=== PATIENT | female | born 1965 | race African-American/Black ===

== ENCOUNTER 2018-08-29 16:46 | Emergency (ER) | payer BC ==
[2018-08-29] MEDS ORDERED: MAGNE/ALUM HYDROXD 30 ML UCUP ONE (17:58)
[2018-08-29] MEDS ORDERED: LIDOCAINE VISCOUS 2% SOLN 15 ML UDC ONE (17:59)
[2018-08-29] MEDS ORDERED: ONDANSETRON 4 MG/2 ML VIAL ONE (17:59)
[2018-08-29 18:04] LABS: Absolute Lymphocytes (CBC) 3.3 K/uL (0.7-4.9); Absolute Monocytes 0.8 K/uL (0.1-1.3); Absolute Neutrophil 6.1 K/uL (1.8-8.0); Basophils % 0.3 % (0-1.3); Eosinophils % 0.2 % (0-4.4); Hematocrit 41.5 % (36.0-45.0); Lymphocytes % 32.3 % (15.3-44.8); MCV 85.3 fL (80-100); MPV 9.2 fL (7.6-11.3); Monocytes % 7.7 % (3.3-12.3); RBC Red Blood Cell Count 4.87 M/uL (3.86-4.86)
[2018-08-29 18:35] LABS: Bilirubin Direct 0.5 mg/dL (0-0.2); Bilirubin Total 0.7 mg/dL (0.2-1.0); Potassium 3.7 mmol/L (3.5-5.1); Protein, Total 8.4 g/dL (6.4-8.2)
[2018-08-29] MEDS ORDERED: CEFTRIAXONE/SWI 1gm 1 GM/10 ML SYR ONE (19:07)
[2018-08-29] MEDS ORDERED: METRONIDAZOLE 500mg IVPB 500 MG/100 ML BAG IV ONE (19:07)
--- NOTE | 2018-08-29 19:39 | EKG ---
Test Date: 2018-08-29 Test Time: 17:52:20 Social Media Manager: BOUCHRA MEASUREMENT RESULTS: Intervals: Rate: 73 MT: 196 QRSD: 76 QT: 364 QTc: 401 [place]: P: 75 MT: 196 QRS: 49 T: 109 INTERPRETIVE STATEMENTS: Normal sinus rhythm Possible Left atrial enlargement Otherwise normal ECG No previous ECG available for comparison Electronically Signed On 08-29-18 19:38:40 CDT by Demond Brothers
--- NOTE | 2018-08-29 19:53 | RAD REPORT ---
EXAM DESCRIPTION: US - Abdomen Exam Limited - 08/29/2018 6:38 pm CLINICAL HISTORY: Abdominal pain, right upper quadrant pain Preliminary findings provided the time of the study. COMPARISON: None. FINDINGS: Gallbladder is distended but not grossly dilated. Wall thickening and a small amount of pe richolecystic fluid seen. There are numerous punctate gallstones layering in the dependent portion th e gallbladder. Common bile duct is normal with no common duct stone identified. IMPRESSION: Multi stone cholelithiasis with wall thickening and pericholecystic fluid. No biliary tree dilatation.
--- NOTE | 2018-08-29 20:01 | RAD REPORT ---
EXAM DESCRIPTION: CT - Abdomen Pelvis W Contrast - 08/29/2018 7:50 pm CLINICAL HISTORY: Abdominal pain, epigastric pain, vomiting, prior hysterectomy COMPARISON: Ultrasound study same date TECHNIQUE: Biphasic, helical CT imaging of the abdomen and pelvis was performed following 100 ml non -ionic IV contrast. Oral contrast was given. All CT scans are performed using dose optimization technique as appropriate and may include automated exposure control or mA/KV adjustment according to patient size. FINDINGS: No suspicious findings in the lung bases. The liver, spleen, and pancreas show no suspicious findings. Gallbladder is distended. There is promi nent gallbladder wall thickening and edema. Gallstones are not well visualized on this study. Biliary tree does appear mildly dilated on CT criteria. Symmetric renal function is seen with no hydronephrosis or suspicious renal mass. No pyelonephritis o r acute renal parenchymal process. Contracted urinary bladder shows no suspicious findings. Uterus is absent. Ovaries are absent or atrophic. No gastric dilatation or wall thickening. No large or small bowel dilatation. Moderate stool volume t hroughout the colon. The appendix is normal. Sigmoid colon is quite tortuous and redundant. No free air or pneumatosis. A small fat only umbilical hernia is present. No bulky lymphadenopathy. A few sm all mesenteric lymph nodes are seen. No adrenal abnormality. No suspicious bony findings. IMPRESSION: Abnormal distended gallbladder with wall thickening and edema. Gallstones were seen on t he ultrasound study. Mild biliary tree dilatation better appreciated than on the ultrasound exam. Stones can be occult on CT imaging.
--- NOTE | 2018-08-29 21:11 | EDPHYS ---
Physician Documentation [facility] Name: Dianna Turk Age: 53 yrs Sex: Female : 1965 Arrival Date: 08/29/2018 Time: 16:47 Bed 14 Private MD: Efrain Marcos ED Physician Dylan Mccullough HPI: 08/29 17:50 This 53 yrs old Black Female presents to ER via Ambulatory with complaints of Abd Pain rn > 50 y/o. 17:54 The patient presents with abdominal pain in the epigastric area, in the right upper rn quadrant. Onset: The symptoms/episode began/occurred 1 month(s) ago. The symptoms do not radiate. Associated signs and symptoms: Pertinent positives: nausea and vomiting, diarrhea, Pertinent negatives: fever, shortness of breath, vomiting blood. The symptoms are described as achy, intermittent. Modifying factors: The symptoms are alleviated by nothing, the symptoms are aggravated by food. Severity of pain: At its worst the pain was moderate in the emergency department the pain has improved. The patient has experienced similar episodes in the past. Reports vague mid and upper abd pain, burning and sharp, intermittent for 1 month, worse today, usually worse after eating but not each time, + nausea/vomiting, increased bowel movements but no diarrhea, no blood. . 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 - Social history:: Smoking status: Patient/guardian denies using tobacco. - Ebola Screening: : No symptoms or risks identified at this time. - Family history:: not pertinent. - Hospitalizations: : No recent hospitalization is reported. ROS: 17:54 Constitutional: Negative for fever, chills, and weight loss. rn 17:57 Neck: Negative for injury, pain, and swelling, Cardiovascular: Negative for chest pain, rn palpitations, and edema, Respiratory: Negative for shortness of breath, cough, wheezing, and pleuritic chest pain, Abdomen/GI: + abd pain/nausea/vomiting Back: Negative for injury and pain, MS/Extremity: Negative for injury and deformity, Skin: Negative for injury, rash, and discoloration, Neuro: Negative for headache, weakness, numbness, tingling, and seizure. Exam: 17:57 Constitutional: This is a well developed, well nourished patient who is awake, alert, rn appears uncomfortable Head/Face: Normocephalic, atraumatic. Cardiovascular: Regular rate and rhythm with a normal S1 and S2. No gallops, murmurs, or rubs. Normal PMI, no JVD. No pulse deficits. Respiratory: Lungs have equal breath sounds bilaterally, clear to auscultation and percussion. No rales, rhonchi or wheezes noted. No increased work of breathing, no retractions or nasal flaring. Abdomen/GI: soft, + mild epigastric and RUQ tenderness, no rebound Back: No spinal tenderness. No costovertebral tenderness. Full range of motion. MS/ Extremity: Pulses equal, no cyanosis. Neurovascular intact. Full, normal range of motion. Equal circumference. Neuro: Awake and alert, GCS 15, oriented to person, place, time, and situation. Cranial nerves II-XII grossly intact. Motor strength 5/5 in all extremities. Sensory grossly intact. Vital Signs: 17:03 BP 168 / 98; Pulse 78; Resp 16; Temp 98.1; Pulse Ox 100% on R/A; Weight 90.72 kg; hb Height 5 ft. 9 in. (175.26 cm); Pain 9/10; 19:22 BP 165 / 96; Pulse 81; Resp 18; Pulse Ox 100% on R/A; Pain 0/10; aa1 20:00 BP 165 / 91; Pulse 79; Resp 16; Pulse Ox 98% on R/A; aa1 20:42 BP 164 / 89; Pulse 73; Resp 16; Pulse Ox 100% on R/A; aa1 21:34 BP 142 / 79; Pulse 79; Resp 16; Temp 98.3; Pulse Ox 100% on R/A; Pain 0/10; aa1 17:03 Body Mass Index 29.53 (90.72 kg, 175.26 cm) hb MDM: 17:28 Patient medically screened. rn 21:09 Data reviewed: vital signs, nurses notes, lab test result(s), radiologic studies, CT pkl scan, plain films, ultrasound. 08/29 17:37 Order name: Basic Metabolic Panel; Complete Time: 18:57 rn 08/29 17:37 Order name: CBC with Diff; Complete Time: 18:48 rn 08/29 17:37 Order name: US Abdomen Limited; Complete Time: 20:05 rn 08/29 17:37 Order name: Creatinine for Radiology; Complete Time: 18:48 rn 08/29 17:37 Order name: Hepatic Function; Complete Time: 18:57 rn 08/29 17:37 Order name: Lipase; Complete Time: 18:57 rn 08/29 17:37 Order name: IV Saline Lock; Complete Time: 17:48 rn 08/29 17:37 Order name: Labs collected and sent; Complete Time: 17:48 rn 08/29 17:37 Order name: CT Abd/Pelvis - W/Contrast; Complete Time: 20:05 rn 08/29 17:37 Order name: EKG; Complete Time: 17:37 rn 08/29 17:37 Order name: EKG - Nurse/Tech; Complete Time: 18:02 rn Administered Medications: 17:55 Drug: GI Cocktail without - (Maalox Suspension 30 ml, Lidocaine Liquid 2 % 15 aa5 ml) Route: PO; 19:05 Follow up: Response: No adverse reaction; Marked relief of symptoms aa1 18:02 Not Given (Patient Refused): Zofran 4 mg IVP once; over 2 minutes aa5 19:00 Drug: Rocephin - (cefTRIAXone) 1 grams {Note: administered IVP per pharmacy protocol at aa5 this time.} Route: IVPB; Infused Over: 30 mins; Site: left antecubital; 19:02 Drug: Flagyl 500 mg Volume: 100 ml; Route: IVPB; Rate: 200 ml/hr; Infused Over: 30 aa5 mins; Site: left antecubital; Disposition: 08/29/18 21:10 Transfer ordered to [facility]. Diagnosis is Acute cholecystitis. Elevated liver functions. - Reason for transfer: Higher level of care. - Accepting physician is Dr. Okeefe. - Condition is Stable. - Problem is new. - Symptoms are unchanged. Signatures: Dispatcher [employer] Kassandra Sandy RN RN aa1 Dylan Mccullough MD MD pkl Nieto, Roman, MD MD rn Calderon, Audri, RN RN aa5 Harriet Bay RN RN hb Corrections: (The following items were deleted from the chart) 22:16 21:10 08/29/2018 21:10 Transfer ordered to [facility]. Diagnosis is aa1 Acute cholecystitis. Elevated liver functions. Reason for transfer: Higher level of care. Accepting physician is Dr. Okeefe. Condition is Stable. Problem is new. Symptoms are unchanged. pkl
--- NOTE | 2018-08-29 21:11 | ER ---
Nurse's Notes [facility] Name: Dianna Turk Age: 53 yrs Sex: Female : 1965 Arrival Date: 08/29/2018 Time: 16:47 Bed 14 Private MD: Efrain Marcos Diagnosis: Acute cholecystitis. Elevated liver functions Presentation: 08/29 17:01 Presenting complaint: Patient states: Upper abdominal pain and N/V x 1 month, worse hb today. Denies fever/diarrhea. Transition of care: patient was not received from another setting of care. Onset of symptoms is unknown. Risk Assessment: Do you want to hurt yourself or someone else? Patient reports no desire to harm self or others. 17:01 Method Of Arrival: Ambulatory hb 17:01 Acuity: ROSELIA 3 hb 17:30 Initial Sepsis Screen: Does the patient meet any 2 criteria? No. Patient's initial aa5 sepsis screen is negative. Does the patient have a suspected source of infection? No. Patient's initial sepsis screen is negative. Care prior to arrival: None. 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 - Social history:: Smoking status: Patient/guardian denies using tobacco. - Ebola Screening: : No symptoms or risks identified at this time. - Family history:: not pertinent. - Hospitalizations: : No recent hospitalization is reported. Screenin:19 Abuse screen: Denies threats or abuse. Nutritional screening: No deficits noted. tw2 Tuberculosis screening: No symptoms or risk factors identified. Fall Risk None identified. Assessment: 17:30 General: Appears uncomfortable, Behavior is calm, cooperative. Pain: Complains of pain aa5 in epigastric area Pain does not radiate. Pain currently is 8 out of 10 on a pain scale. Quality of pain is described as sharp, Pain began 1 month ago Is episodic, Aggravated by eating. Neuro: Level of Consciousness is awake, alert, obeys commands, Oriented to person, place, time, situation. Cardiovascular: Heart tones S1 S2 present Rhythm is regular. Respiratory: Airway is patent Respiratory effort is even, unlabored, Respiratory pattern is regular, symmetrical, Breath sounds are clear bilaterally. GI: Abdomen is round non-distended, Bowel sounds present X 4 quads. Abd is soft X 4 quads Abdomen is tender to palpation in right upper quadrant Reports nausea, vomiting, Patient currently denies diarrhea. : No signs and/or symptoms were reported regarding the genitourinary system. EENT: No signs and/or symptoms were reported regarding the EENT system. Derm: Skin is dry, Skin is normal, Skin temperature is warm. Musculoskeletal: Range of motion: intact in all extremities. 17:55 Reassessment: Pt finished CT oral contrast, CT notified . aa5 17:55 Reassessment: Pt notified of wait time for lab results, for US to be completed, and for aa5 CT to be completed. Pt verbalized understanding. Pt's family at bedside. Pt currently sitting up in bed. . 19:00 Reassessment: Patient and/or family updated on plan of care and expected duration. Pain aa5 level reassessed. Patient states feeling better. Awaiting CT scan . Pain: Pain currently is 3 out of 10 on a pain scale. Neuro: Level of Consciousness is awake, alert, obeys commands, Oriented to person, place, time, situation. Respiratory: Airway is patent Respiratory effort is even, unlabored, Respiratory pattern is regular, symmetrical. Derm: Skin is dry, Skin is normal, Skin temperature is warm. 19:22 Reassessment: Patient appears in no apparent distress at this time. Patient and/or aa1 family updated on plan of care and expected duration. Pain level reassessed. Patient is alert, oriented x 3, equal unlabored respirations, skin warm/dry/pink. Pt resting comfortably, awaiting CT scan Patient denies pain at this time. 19:41 Reassessment: Pt taken to CT at this time. aa1 20:44 Reassessment: Patient appears in no apparent distress at this time. Patient and/or aa1 family updated on plan of care and expected duration. Pain level reassessed. Patient is alert, oriented x 3, equal unlabored respirations, skin warm/dry/pink. Awaiting provider reassessment. 21:38 Reassessment: Patient appears in no apparent distress at this time. Patient and/or aa1 family updated on plan of care and expected duration. Pain level reassessed. Patient is alert, oriented x 3, equal unlabored respirations, skin warm/dry/pink. Report given to Monique Madison RN at [facility]. 22:14 Reassessment: Patient appears in no apparent distress at this time. Patient is alert, aa1 oriented x 3, equal unlabored respirations, skin warm/dry/pink. [facility] present for pt transfer to [facility]. Vital Signs: 17:03 BP 168 / 98; Pulse 78; Resp 16; Temp 98.1; Pulse Ox 100% on R/A; Weight 90.72 kg; hb Height 5 ft. 9 in. (175.26 cm); Pain 9/10; 19:22 BP 165 / 96; Pulse 81; Resp 18; Pulse Ox 100% on R/A; Pain 0/10; aa1 20:00 BP 165 / 91; Pulse 79; Resp 16; Pulse Ox 98% on R/A; aa1 20:42 BP 164 / 89; Pulse 73; Resp 16; Pulse Ox 100% on R/A; aa1 21:34 BP 142 / 79; Pulse 79; Resp 16; Temp 98.3; Pulse Ox 100% on R/A; Pain 0/10; aa1 17:03 Body Mass Index 29.53 (90.72 kg, 175.26 cm) hb ED Course: 16:47 Patient arrived in ED. sb2 16:47 Efrain Marcos MD is Private Physician. sb2 17:03 Triage completed. hb 17:04 Arm band placed on left wrist. hb 17:28 Gonzalo Liao MD is Attending Physician. rn 17:30 Patient has correct armband on for positive identification. Bed in low position. Call aa5 light in reach. Side rails up X2. 17:30 Missed attempt(s): 22 gauge in right antecubital area. blood collected. Bleeding tw2 controlled, band aid applied, catheter tip intact. Missed attempt(s): 22 gauge in left antecubital area. Bleeding controlled, band aid applied, catheter tip intact. 17:37 Marian Batista, RN is Primary Nurse. aa5 17:43 Initial lab(s) drawn, by fl, sent to lab. Inserted saline lock: 20 gauge in left dh3 antecubital area, using aseptic technique. Blood collected. 18:00 EKG done, by predictive maintenance technician. reviewed by Gonzalo Liao MD. sm3 18:08 No provider procedures requiring assistance completed. aa5 18:38 US Abdomen Limited In Process Unspecified. EDMS 19:00 Report given to NERY Cannon. aa5 19:19 Attending Physician role handed off by Gonzalo Liao MD pk 19:19 Dylan Mccullough MD is Attending Physician. pk 19:22 Door closed. Lights dimmed. Warm blanket given. aa1 19:34 CT completed. Patient tolerated procedure well. Patient moved back from CT. tn 19:50 CT Abd/Pelvis - W/Contrast In Process Unspecified. EDMS 22:14 Patient transferred, IV remains in place. aa1 Administered Medications: 17:55 Drug: GI Cocktail without - (Maalox Suspension 30 ml, Lidocaine Liquid 2 % 15 aa5 ml) Route: PO; 19:05 Follow up: Response: No adverse reaction; Marked relief of symptoms aa1 18:02 Not Given (Patient Refused): Zofran 4 mg IVP once; over 2 minutes aa5 19:00 Drug: Rocephin - (cefTRIAXone) 1 grams {Note: administered IVP per pharmacy protocol at aa5 this time.} Route: IVPB; Infused Over: 30 mins; Site: left antecubital; 19:02 Drug: Flagyl 500 mg Volume: 100 ml; Route: IVPB; Rate: 200 ml/hr; Infused Over: 30 aa5 mins; Site: left antecubital; Outcome: 21:10 ER care complete, transfer ordered by . pk 22:14 Transferred by ground EMS to [facility], Transfer form completed. aa1 22:14 Condition: good 22:14 Instructed on the need for transfer, Demonstrated understanding of instructions. 22:16 Patient left the ED. aa1 Signatures: Dispatcher [employer] EDMS Kassandra Graham RN RN aa1 Dylan Mccullough MD MD pkGonzalo Verdugo MD MD rn Calderon, Audri RN NERY aa5 Harriet Bay RN RN Donna Griffith RN RN 2 Thanh Sanchez Deanna 3 Neha Torres [facility] Marybel Blake 3 Corrections: (The following items were deleted from the chart) 19:13 19:00 Rocephin - (cefTRIAXone) 1 grams IVPB in left antecubital over 30 mins aa5 aa5
== END 2018-08-29 22:16 | disposition short-term general hospital (02) ==
LOC: ER 16:46
DX: K81.0 Acute cholecystitis (principal); R79.89 Other specified abnormal findings of blood chemistry
CPT/HCPCS: 36415; 74177; 76705; 80048; 80076; 83690; 85025; 93005; 96374; 96375; 99285; J0696; J2405; Q9967